=== PATIENT | female | born 1975 | race Caucasian/White ===

== ENCOUNTER 2018-09-15 19:15 | Emergency (ER) | payer BC ==
[2018-09-15 20:10] VITALS: BP 131/72
--- NOTE | 2018-09-15 20:19 | UC ---
Skin Complaint HPI - HPI Summary HPI Summary: 43 -year-old female who had a tick on her left abdomen and removed it. She states it was only there for a few hours. - History of Current Complaint Chief Complaint: UCBiteInjury Time Seen by Provider: 09/15/18 20:03 Stated Complaint: TICK BITE Hx Obtained From: Patient ?: No Onset/Duration: Sudden Onset Skin Exposure Onset/Duration: Hours Ago Timing: Constant Onset Severity: Mild Current Severity: None Pain Intensity: 0 Character: Redness Alleviating Factor(s): Nothing Associated Signs & Symptoms: Positive: Negative Related History: Insect Bite/Sting - Allergy/Home Medications Allergies/Adverse Reactions: Allergies Allergy/AdvReac Type Severity Reaction Status Date / Time No Known Allergies Allergy Verified 09/15/18 20:10 Home Medications: Home Medications NK [No Home Medications Reported] 09/15/18 [History Confirmed 09/15/18] PMH/Surg Hx/FS Hx/Imm Hx Previously Healthy: Yes - Surgical History Surgical History: Yes Surgery Procedure, Year, and Place: Ablation - Social History Alcohol Use: None Substance Use Type: None Smoking Status (MU): Never Smoked Tobacco Review of Systems All Other Systems Reviewed And Are Negative: Yes Skin: Positive: Other - Patient removed a tick from her left January. Is Patient Immunocompromised?: No Physical Exam Triage Information Reviewed: Yes Appearance: Well-Appearing, No Pain Distress, Well-Nourished Vital Signs: Initial Vital Signs Temp 99.2 F 09/15/18 20:05 Pulse 77 09/15/18 20:05 Resp 16 09/15/18 20:05 BP 131/72 09/15/18 20:05 Pulse Ox 100 09/15/18 20:05 Vital Signs Reviewed: Yes Skin: Positive: Other - The tick has been completely removed. There is one small pinpoint red area present. Course/Dx - Course Course Of Treatment: This patient had already removed the tick prior to coming to urgent care. She did appear to get the entire tick out. I gave her instructions on Lyme disease and she is to follow-up with her primary care provider in 2-4 weeks if she develops any symptoms of such. - Diagnoses Provider Diagnosis: Tick bite of abdomen Discharge - Sign-Out/Discharge Documenting (check all that apply): Patient Departure All imaging exams completed and their final reports reviewed: No Studies - Discharge Plan Condition: Good Disposition: HOME Patient Education Materials: Tick Bite (ED) Referrals: [facility] [Outside] No Primary Care Phys,NOPCP [Primary Care Provider] - Additional Instructions: Follow-up with your primary care provider if you develop any fever, chills, body aches or joint aches or rashes on her body in the next 2-4 weeks. - Billing Disposition and Condition Condition: GOOD Disposition: Home
== END 2018-09-15 20:19 | disposition home or self-care (01) ==
LOC: UCCORT 19:15
DX: S30.861A Insect bite (nonvenomous) of abdominal wall, initial encounter (principal); W57.XXXA Bitten or stung by nonvenomous insect and other nonvenomous arthropods, initial encounter; Y92.9 Unspecified place or not applicable
CPT/HCPCS: 99201; G0463